=== PATIENT | female | born 1945 | race Caucasian/White ===

== ENCOUNTER 2017-04-25 04:01 | Inpatient (IN) | payer MEDICARE ==
[2017-04-25] MEDS ORDERED: FENTANYL CITRATE INJ/PF 100 MCG/2 ML AMPUL IV ONE (04:26)
[2017-04-25] MEDS ORDERED: ONDANSETRON HCL INJ/PF 4 MG/2 ML SDV IV ONE (04:26)
--- NOTE | 2017-04-25 04:51 | ER Document Report ---
ED GI/ - General TRAVEL OUTSIDE OF THE [place] IN LAST 30 DAYS: No <JIMENA MONZON - Last Filed: 04/25/17 07:17> <RE SOTO - Last Filed: 04/25/17 12:49> - General Chief Complaint: Abdominal Pain Stated Complaint: ABDOMINAL PAIN Time Seen by Provider: 04/25/17 04:16 Notes: Patient is a 71-year-old female that comes emergency department for chief complaint of sharp upper abdominal pain, she states she feels like it shoots into her right back or shoulder occasionally as well. She states pain started suddenly at 1 AM it woke her up. She denies vomiting, she reports intermittent nausea, she denies lower abdominal pain, chest pain, fever or chills. Past medical history of gastric sleeve, hysterectomy, left breast removal secondary to cancer, she is also on Eliquis for atrial fibrillation. (JIMENA MONZON) - Related Data Allergies/Adverse Reactions: acetaminophen [From Percocet] Adverse Reaction (Verified 04/25/17 06:50) hydrocodone [From Tionesta] Adverse Reaction (Verified 04/25/17 06:50) Opioids - Morphine Analogues Adverse Reaction (Verified 04/25/17 06:50) oxycodone [From Percocet] Adverse Reaction (Verified 04/25/17 06:50) Past Medical History - General Information source: Patient, Relative - Social History Smoking Status: Never Smoker Frequency of alcohol use: None Drug Abuse: None Lives with: Family Family History: Reviewed & Not Pertinent - Past Medical History Cardiac Medical History: Reports: Hx Atrial Fibrillation Malignancy Medical History: Reports: Hx Breast Cancer Past Surgical History: Reports: Hx Breast Surgery - Left breast removed, Hx Gastric Bypass Surgery - Gastric sleeve, Hx Hysterectomy <JIMENA MONZON - Last Filed: 04/25/17 07:17> Review of Systems - Review of Systems Constitutional: No symptoms reported EENT: No symptoms reported Cardiovascular: No symptoms reported Respiratory: No symptoms reported Gastrointestinal: See HPI Genitourinary: No symptoms reported Female Genitourinary: No symptoms reported Musculoskeletal: No symptoms reported Skin: No symptoms reported Hematologic/Lymphatic: No symptoms reported Neurological/Psychological: No symptoms reported <JIMENA MONZON - Last Filed: 04/25/17 07:17> Physical Exam - General General appearance: Anxious In distress: Moderate - Patient obviously uncomfortable - HEENT Head: Normocephalic, Atraumatic Eyes: Normal Conjunctiva: Normal Extraocular movements intact: Yes Eyelashes: Normal Pupils: PERRL Nasal: Normal Mouth/Lips: Normal Mucous membranes: Normal Pharynx: Normal Neck: Normal - Respiratory Respiratory status: No respiratory distress. No: Respiratory distress, Labored , Tachypnea Breath sounds: Normal. No: Decreased air movement, Wheezing - Cardiovascular Rhythm: Regular. No: Tachycardia Heart sounds: Normal auscultation, S1 appreciated, S2 appreciated Murmur: No Normal capillary refill: Yes - Abdominal Inspection: Normal Distension: No distension Tenderness: Tender - Very tender across the upper abdomen generally, most tender in the epigastric area, lower abdomen with minimal tenderness, Guarding - Back Back: Normal. No: Tender - Extremities General upper extremity: Normal inspection, Nontender, Normal strength, Normal temperature General lower extremity: Normal inspection, Nontender, Normal strength, Normal temperature. No: Edema - Neurological Neuro grossly intact: Yes Cognition: Normal Orientation: AAOx4 Easley Coma Scale Eye Opening: Spontaneous Jazmin Coma Scale Verbal: Oriented Jazmin Coma Scale Motor: Obeys Commands Easley Coma Scale Total: 15 Speech: Normal Motor strength normal: LUE, RUE, LLE, RLE Sensory: Normal - Skin Skin Temperature: Warm Skin Moisture: Dry Skin Color: Normal <JIMENA MONZON - Last Filed: 04/25/17 07:17> - Vital signs Vitals: Temp Pulse Resp BP Pulse Ox 97.5 F 58 L 20 177/75 H 100 04/25/17 04:08 04/25/17 04:08 04/25/17 04:08 04/25/17 04:08 04/25/17 04:08 Course - Laboratory Result Diagrams: 04/25/17 04:45 04/25/17 04:45 <JIMENA MONZON - Last Filed: 04/25/17 07:17> - Laboratory Result Diagrams: 04/25/17 04:45 04/25/17 04:45 <RE SOTO - Last Filed: 04/25/17 12:49> - Re-evaluation Re-evalutation: Patient is noticeably uncomfortable on initial evaluation, concern for possible perforation due to sudden onset of pain, pain in her upper abdomen generally with some guarding, could be cholecystitis or gallbladder pain although will begin with CAT scan with IV contrast to rule out perforation first and then may be progress to ultrasound if needed. 04/25/17 Patient had some relief of initial pain with the small amount of fentanyl, however now she is vomiting. Will not be able to tolerate oral contrast. Checking troponin and EKG as well. Patient requests Toradol, she has had this in the past, creatinine is normal. Giving small dose. 04/25/17 CT showing nonspecific mesenteric stranding which could be infectious, inflammatory, or cancerous. Patient does have a history of breast cancer, however with her acute pain she will be covered with Zosyn at this time, CT also indicates possible 0.3 cm stone either in the gallbladder or in the ducts, ultrasound will be performed to further evaluate. 04/25/17 07:20 Patient was introduced to Nasrin Soto PA-C at bedside, final workup pending. (JIMENA MONZON) 04/25/17 12:47 MRCP was ordered due to possibility of choledocholithiasis today on CAT scan. MRCP negative for any acute pathology or any findings of abnormality really. Dr. Bonilla, hospitalist agrees to admit at this time for further workup as we have no reason at this time to transfer her with negative workup of the gallbladder, she has been with us in the ER for 9 hours, received a CAT scan, ultrasound and MRI at this time we still do not have a clear answer as to what is going on but patient has required repeat pain medication and nausea medication here. (RE SOTO) - Vital Signs Vital signs: Temp Pulse Resp BP Pulse Ox 97.5 F 58 L 20 177/75 H 100 04/25/17 04:08 04/25/17 04:08 04/25/17 04:08 04/25/17 04:08 04/25/17 04:08 - Laboratory Laboratory results interpreted by me: 04/25/17 04/25/17 04/25/17 04:45 04:45 05:00 RDW 14.1 H Sodium 135.5 L Glucose 124 H Total Protein 6.2 L Ur Leukocyte Esterase LARGE H Discharge <JIMENA MONZON - Last Filed: 04/25/17 07:17> - Discharge Admitting Provider: Lakeishaist - kimmy Unit Admitted: Medical Floor <RE SOTO - Last Filed: 04/25/17 12:49> - Discharge Clinical Impression: Epigastric pain Nausea and vomiting Qualifiers: Vomiting type: unspecified Vomiting Intractability: non-intractable Qualified Code(s): R11.2 - Nausea with vomiting, unspecified Condition: Stable Disposition: ADMITTED INPATIENT
[2017-04-25 05:10] LABS: ABSOLUTE EOSINOPHILS # (AUTO) 0.1 10^3/uL (0.0-0.6); ABSOLUTE MONOCYTES (AUTO) 0.7 10^3/uL (0.1-1.4); ABSOLUTE NEUT (AUTO) 6.5 10^3/uL (1.7-8.2); BASOPHILS % (AUTO) 0.3 % (0-2); EOSINOPHILS % (AUTO) 0.7 % (0-6); LYMPHOCYTES % (AUTO) 29.6 % (13-45); MEAN CORPUSCULAR HEMOGLOBIN 30.3 pg (27.0-33.4); MEAN CORPUSCULAR HGB CONC 34.1 g/dL (32.0-36.0); MEAN CORPUSCULAR VOLUME 89 fl (80-97); MONOCYTES % (AUTO) 6.6 % (3-13); PLATELET COUNT 213 10^3/uL (150-450); RED BLOOD COUNT 4.62 10^6/uL (3.72-5.28); RED CELL DISTRIBUTION WIDTH 14.1 % (11.5-14.0); SEGMENTED NEUTROPHILS % (AUTO) 62.8 % (42-78); TOTAL CELLS COUNTED % (AUTO) 100 %; WHITE BLOOD COUNT 10.3 10^3/uL (4.0-10.5)
[2017-04-25 05:29] LABS: ALANINE AMINOTRANSFERASE 40 U/L (9-52); ALBUMIN 4.1 g/dL (3.5-5.0); ALKALINE PHOSPHATASE 82 U/L (38-126); ANION GAP 14 (5-19); ASPARTATE AMINO TRANSFERASE 24 U/L (14-36); BILIRUBIN,DIRECT 0.1 mg/dL (0.0-0.4); BILIRUBIN,TOTAL 0.5 mg/dL (0.2-1.3); BLOOD UREA NITROGEN 19 mg/dL (7-20); CARBON DIOXIDE 24 mmol/L (22-30); CHLORIDE 98 mmol/L (98-107); GLUCOSE 124 mg/dL (75-110); LIPASE 212.4 U/L (23-300); SODIUM 135.5 mmol/L (137-145); TOTAL PROTEIN 6.2 g/dL (6.3-8.2)
[2017-04-25] MEDS ORDERED: KETOROLAC TROMETHAMINE INJ/PF 30 MG/1 ML SDV IV ONE (05:42)
[2017-04-25] MEDS ORDERED: NORMAL SALINE 1000 ML 1,000 ML IV ONE (05:42)
[2017-04-25 05:46] LABS: APPEARANCE,URINE CLEAR; BILIRUBIN,URINE NEGATIVE (NEGATIVE); COLOR,URINE YELLOW; GLUCOSE, URINE NEGATIVE (NEGATIVE); KETONES,URINE NEGATIVE (NEGATIVE); LEUKOCYTE ESTERASE,URINE LARGE (NEGATIVE); NITRITE,URINE NEGATIVE (NEGATIVE); PROTEIN,URINE NEGATIVE (NEGATIVE); URINE SPECIFIC GRAVITY 1.014; UROBILINOGEN,URINE NEGATIVE mg/dL (<2.0)
--- NOTE | 2017-04-25 06:50 | RADIOLOGY REPORT (SQ) ---
EXAM DESCRIPTION: CT ABD/PELVIS WITH IV ONLY CLINICAL HISTORY: 71 years Female, severe upper abdominal pain COMPARISON: None. TECHNIQUE: 71 mL Isovue-370 contrast. Coronal and sagittal reformat. This exam was performed according to our departmental dose-optimization program, which includes automated exposure control, adjustment of the mA and/or kV according to patient size and/or use of iterative reconstruction technique. Limited: No delay sequence of the renal system due to technical problems with the CT scanner. FINDINGS: Moderate, extensively inflamed mesenteric fat of the right paracentral abdomen. No significant free fluid. 0.3 cm calcification near the gallbladder neck may indicate gallstone or choledocholithiasis. Small hiatal hernia. Atherosclerosis. Gastric suture. Moderate levo convexity. Mammary prostheses. Moderate coronary arterial calcification. Calcified right buttock granuloma. Grade 2 L5 anterolisthesis with chronic bilateral L5 spondylolyses, and moderate-severe bilateral L5 foraminal stenoses. Inferior thorax, liver, pancreas, spleen, adrenals, kidneys, gastrointestinal tract, pelvic organs, lymphatics, vasculature, and musculoskeleton appear otherwise unremarkable. IMPRESSION: 1. Moderately mesenteric fat inflammation of the right paracentral abdomen. Infectious, inflammatory, neoplastic processes are in the differential diagnosis. 2. Possible 0.3 cm cholelithiasis/choledocholithiasis. 3. Grade 2 L5 anterolisthesis with chronic bilateral L5 spondylolyses, and moderate-severe bilateral L5 foraminal stenoses.
[2017-04-25] MEDS ORDERED: PIPERACILLIN/TAZOBACTAM 3.375 GM VIAL IV ONE (06:54)
[2017-04-25] MEDS ORDERED: DIPHENHYDRAMINE HCL 50 MG/ML VIAL IV ONE ×4 (06:59→18:45)
[2017-04-25] MEDS ORDERED: HYDROMORPHONE HCL INJ/PF 2 MG/ML AMPULE IV ONE ×4 (06:59→18:45)
--- NOTE | 2017-04-25 08:16 | RADIOLOGY REPORT (SQ) ---
EXAM DESCRIPTION: U/S ABDOMEN LIMITED W/O DOP COMPLETED DATE/TIME: 04/25/2017 8:04 am REASON FOR STUDY: eval stone location COMPARISON: Abdominal CT scan dated 04/25/2017 TECHNIQUE: Dynamic and static grayscale images acquired of the abdomen and recorded on PACS. Rogerioo kelvin selected color Doppler and spectral images recorded. LIMITATIONS: None. FINDINGS: PANCREAS: No masses. Visualized pancreatic duct normal caliber. LIVER: No masses. Echotexture normal. LIVER VASCULATURE: Normal directional flow of the main portal vein. GALLBLADDER: No stones. Normal wall thickness. No pericholecystic fluid. The suspected gallstone joseph ntified on the CT is not identified on the basis of the ultrasound examination. ULTRASOUND-DETECTED TORRES'S SIGN: Negative. INTRAHEPATIC DUCTS AND COMMON DUCT: CBD and intrahepatic ducts normal caliber. No filling defects. INFERIOR VENA CAVA: Normal flow. AORTA: No aneurysm. RIGHT KIDNEY: Normal size. Normal echogenicity. No solid or suspicious masses. No hydronephrosis. No calcifications. PERITONEAL AND RIGHT PLEURAL SPACE: No ascites or effusions. OTHER: No other significant findings. IMPRESSION: NORMAL RIGHT UPPER QUADRANT ULTRASOUND. The suspected gallstone identified on the CT is not identified on the basis of the ultrasound examination. TECHNICAL DOCUMENTATION: JOB ID: [id number] [employer]- All Rights Reserved Reading location - IP/workstation name: [email or web address]
--- NOTE | 2017-04-25 09:35 | EKG REPORT ---
SEVERITY:- ABNORMAL ECG - SINUS RHYTHM NONSPECIFIC ST-T CHANGES ANTERIOR LEADS. : Confirmed by: Solomon Rodas MD 25-Apr-2017 09:34:44
--- NOTE | 2017-04-25 12:09 | RADIOLOGY REPORT (SQ) ---
EXAM DESCRIPTION: MRI ABDOMEN WITHOUT COMPLETED DATE/TIME: 04/25/2017 11:17 am REASON FOR STUDY: choledocolithiasis? CT measured 0.3cm, RUQ neg COMPARISON: None. TECHNIQUE: Multiplanar multisequence imaging performed without contrast including sagittal, axial an d coronal T2, axial T1, axial gradient fat sat T1, and axial in and out of phase sequences. Addition al MRCP images also acquired. CONTRAST TYPE AND DOSE: Noncontrast study. RENAL FUNCTION: Not applicable. LIMITATIONS: None. FINDINGS: LIVER: Normal size. No masses. No dilated ducts. CBD normal. BILE DUCTS: No ductal dilation. Common bile duct measures 5 mm. No filling defects. SPLEEN: Normal size. No focal lesions. PANCREAS: No masses. No adjacent inflammation or peripancreatic fluid collections. Pancreatic duct no t dilated. GALLBLADDER: No masses. No stones. No gallbladder wall thickening or pericholecystic fluid. ADRENAL GLANDS: No significant masses or asymmetry. RIGHT KIDNEY AND URETER: No masses. No hydronephrosis. LEFT KIDNEY AND URETER: No masses. No hydronephrosis. AORTA AND VESSELS: No aneurysm. No dissection. Renal arteries, SMA, celiac without stenosis. RETROPERITONEUM: No retroperitoneal adenopathy, hemorrhage or masses. BOWEL: No visualized masses. No inflammation. No significant dilatation. ABDOMINAL WALL AND PERITONEUM: No hernias. There is trace free fluid in the right and left upper valeria drant. BONES: No acute or significant findings. OTHER: No other significant finding. IMPRESSION: RELATIVELY UNREMARKABLE MRI OF THE ABDOMEN WITHOUT CONTRAST. TRACE FREE FLUID IN THE UP PER ABDOMEN OF UNCLEAR ETIOLOGY OR SIGNIFICANCE. NO OTHER SIGNIFICANT FINDINGS. TECHNICAL DOCUMENTATION: JOB ID: [id number] [employer]- All Rights Reserved Reading location - IP/workstation name: [email or web address]
[2017-04-25] MEDS ORDERED: NORMAL SALINE 1000 ML 1,000 ML IV PRN (13:01)
[2017-04-25] MEDS ORDERED: ENOXAPARIN SODIUM INJ 40 MG/0.4 ML DISP.SYRIN SUBCUT ONE (14:30)
[2017-04-25] MEDS ORDERED: HYDRALAZINE HCL INJ/PF 20 MG/1 ML SDV IV PRN (14:45)
--- NOTE | 2017-04-25 14:46 | PDOC H&P ---
History of Present Illness Admission Date/PCP: 04/25/17 13:04 PCP: Will need to ask patient. Patient complains of: abdominal pain and nausea * 1 day History of Present Illness: NADER FERRER is a 71 year old female with history of gastric sleeve, breast cancer s/p mastectomy in 2010, HTN who presents to the ED for less than one day of acute abdominal pain. States that she was sleeping and woke up with acute right sided abdominal pain. Associated symptoms included nausea. Denies fevers, chills, CP, SOB, vomiting. States that she had her gastric sleeve one year ago at [facility]. Has had no subsequent issues related to sleeve. Denies history of gallbladder disease. No recent sick contacts. Diet has been relatively unchanged except for increased protein intake with use of high protein drink. Her breast cancer is currently in remission and she has normal follow up mammograms. 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 Past Medical History Cardiac Medical History: Reports: Atrial Fibrillation, Hypertension Endocrine Medical History: Reports: Diabetes Mellitus Type 2 Malignancy Medical History: Reports: Breast Cancer Past Surgical History Past Surgical History: Reports: Gastric Bypass Surgery - Gastric sleeve, Hysterectomy, Mastectomy Social History Information Source: Patient Lives with: Family Smoking Status: Never Smoker Frequency of Alcohol Use: Rare Hx Recreational Drug Use: No Drugs: None Hx Prescription Drug Abuse: No Family History Family History: Reviewed & Not Pertinent Parental Family History Reviewed: No Children Family History Reviewed: NA Sibling(s) Family History Reviewed.: NA Medication/Allergy Allergies/Adverse Reactions: acetaminophen [From Percocet] Adverse Reaction (Verified 04/25/17 06:50) hydrocodone [From [place]] Adverse Reaction (Verified 04/25/17 06:50) Opioids - Morphine Analogues Adverse Reaction (Verified 04/25/17 06:50) oxycodone [From Percocet] Adverse Reaction (Verified 04/25/17 06:50) Physical Exam Vital Signs: Temp Pulse Resp BP Pulse Ox 97.5 F 58 L 20 177/75 H 100 04/25/17 04:08 04/25/17 04:08 04/25/17 04:08 04/25/17 04:08 04/25/17 04:08 General appearance: PRESENT: no acute distress, other - Very pleasant, appears comfortable Head exam: PRESENT: normocephalic Mouth exam: PRESENT: moist Respiratory exam: PRESENT: unlabored. ABSENT: tachypnea, wheezes Cardiovascular exam: PRESENT: RRR, +S1, +S2. ABSENT: tachycardia GI/Abdominal exam: PRESENT: normal bowel sounds, soft, tenderness - RLL tenderness to deep palation Extremities exam: ABSENT: tenderness, +1 edema Neurological exam: PRESENT: alert, awake, CN II-XII grossly intact Psychiatric exam: PRESENT: appropriate affect Results Impressions: Abdomen/Pelvis CT 04/25/17 04:25 IMPRESSION: 1. Moderately mesenteric fat inflammation of the right paracentral abdomen. Infectious, inflammatory, neoplastic processes are in the differential diagnosis. 2. Possible 0.3 cm cholelithiasis/choledocholithiasis. 3. Grade 2 L5 anterolisthesis with chronic bilateral L5 spondylolyses, and moderate-severe bilateral L5 foraminal stenoses. Abdomen Ultrasound 04/25/17 06:54 IMPRESSION: NORMAL RIGHT UPPER QUADRANT ULTRASOUND. The suspected gallstone identified on the CT is not identified on the basis of the ultrasound examination. Abdomen MRI 04/25/17 08:47 IMPRESSION: RELATIVELY UNREMARKABLE MRI OF THE ABDOMEN WITHOUT CONTRAST. TRACE FREE FLUID IN THE UPPER ABDOMEN OF UNCLEAR ETIOLOGY OR SIGNIFICANCE. NO OTHER SIGNIFICANT FINDINGS. Assessment & Plan - Diagnosis (1) Nausea and vomiting Qualifiers: Vomiting type: unspecified Vomiting Intractability: non-intractable Qualified Code(s): R11.2 - Nausea with vomiting, unspecified Is this a current diagnosis for this admission?: Yes Plan: Acute onset of right sided abdominal pain with nausea Work up: - Labs largely unremarkable. WBC, lipase, LFTs all wnl - CT AP showed moderate mesenteric fat inflammation of the right paracentral abdomen. Also notes 0.3 cholelithasis - RUQ - no evidence of gallstone - MRCP without contrast - no clear abnormality with trace free fluid Unclear etiology. this may be a stone that has passed. Would expect to see ductal dilitation if there was previous stone. No evidence of cholecystitis, pancreatitis, or other intra=abdominal pathology. CT did show mesenteric fat inflammation, however unclear significance of this - Will continue supportive care for now with IVF 75cc, clear liquids (ADAT), IV Zofran prn - If abdominal pain persists/worsens, will consult GI for consideration of ERCP - Admit for observation (2) Breast cancer Qualifiers: Breast location: unspecified site of breast Estrogen receptor status: positive Patient sex: female Laterality: unspecified laterality Qualified Code(s): C50.919 - Malignant neoplasm of unspecified site of unspecified female breast; Z17.0 - Estrogen receptor positive status [ER+]; Z17.0 - Estrogen receptor positive status [ER+] Is this a current diagnosis for this admission?: No Plan: Previous history, s/p mastectomy without adjuvant therapy - Has had follow up mammograms and states no evidence of recurrence (3) Gastric bypass status for obesity Is this a current diagnosis for this admission?: No Plan: History of gastric sleeve 1 year ago - No active issues - Followed at [facility] (4) HTN (hypertension) Qualifiers: Hypertension type: essential hypertension Qualified Code(s): I10 - Essential (primary) hypertension Is this a current diagnosis for this admission?: Yes Plan: Blood pressure elevated currently. Likely worsened due to pain - CTM - Continue home Amlodipine, Metoprolol, and Olmesartan - Will add Hydralazine 10mg IV q6 hours PRN 180 - Time Time Spent: 50 to 70 Minutes Anticipated discharge: Home Within: within 24 hours
[2017-04-25] MEDS: APIXABAN 5 MG TABLET PO SCH (22:24)
[2017-04-25] MEDS: ONDANSETRON HCL INJ/PF 4 MG/2 ML SDV IV PRN (22:25)
[2017-04-25] MEDS: 1/2 NORMAL SALINE 1,000 ML IV PRN (23:06)
[2017-04-25] MEDS: AMLODIPINE BESYLATE 5 MG TABLET PO SCH (23:06)
[2017-04-25] MEDS ORDERED: LACTULOSE SYRUP 20 GM/30 ML UDCUP PO ONE (23:49)
[2017-04-26] MEDS: KETOROLAC TROMETHAMINE INJ/PF 30 MG/1 ML SDV IV PRN ×3 (00:12→23:59)
[2017-04-26] MEDS ORDERED: METOPROLOL TARTRATE PF/INJ 5 MG/5 ML SDV IV ONE ×3 (00:50→03:45)
[2017-04-26] MEDS ORDERED: HYDROMORPHONE HCL INJ/PF 2 MG/ML AMPULE SUBCUT ONE (03:45)
[2017-04-26] MEDS ORDERED: DIPHENHYDRAMINE HCL 50 MG/ML VIAL ONE (03:59)
[2017-04-26] MEDS ORDERED: DIPHENHYDRAMINE HCL 50 MG/ML VIAL IV ONE (04:00)
[2017-04-26] MEDS: ONDANSETRON HCL INJ/PF 4 MG/2 ML SDV IV PRN ×3 (04:25→22:15)
[2017-04-26] MEDS ORDERED: DEXTROSE 40% GEL 15 GM TUBE PO PRN ×2 (04:39)
[2017-04-26] MEDS ORDERED: GLUCAGON,HUMAN RECOMB 1 MG INJ SUBCUT PRN (04:39)
[2017-04-26] MEDS ORDERED: DEXTROSE 50%-WATER 25 GM/50 ML DISP.SYRIN IV PRN ×2 (04:39)
[2017-04-26 04:45] LABS: HEMATOCRIT 41.8 % (36.0-47.0); HEMOGLOBIN 13.9 g/dL (12.0-15.5); MEAN CORPUSCULAR HEMOGLOBIN 29.9 pg (27.0-33.4); MEAN CORPUSCULAR HGB CONC 33.3 g/dL (32.0-36.0); MEAN CORPUSCULAR VOLUME 90 fl (80-97); PLATELET COUNT 215 10^3/uL (150-450); RED BLOOD COUNT 4.65 10^6/uL (3.72-5.28); WHITE BLOOD COUNT 11.1 10^3/uL (4.0-10.5)
[2017-04-26 05:25] LABS: ANION GAP 11 (5-19); BLOOD UREA NITROGEN 10 mg/dL (7-20); CALCIUM 9.5 mg/dL (8.4-10.2); CARBON DIOXIDE 25 mmol/L (22-30); CHLORIDE 92 mmol/L (98-107); GLUCOSE 144 mg/dL (75-110); POTASSIUM 3.9 mmol/L (3.6-5.0); SODIUM 127.5 mmol/L (137-145)
[2017-04-26] MEDS: LANSOPRAZOLE 30 MG TAB.RAP.DR PO SCH (05:56)
[2017-04-26] MEDS ORDERED: (PENDING PHARMACY ID) (Olmesartan Medoxomil [Benicar] 40 MG) PO SCH (10:00)
[2017-04-26] MEDS ORDERED: ENOXAPARIN SODIUM INJ 40 MG/0.4 ML DISP.SYRIN SUBCUT SCH (10:00)
[2017-04-26] MEDS ORDERED: HYDROMORPHONE HCL INJ/PF 2 MG/ML AMPULE INJ PRN (10:07)
[2017-04-26] MEDS ORDERED: BISACODYL 10 MG SUPP.RECT PR ONE (11:00)
[2017-04-26] MEDS: HYDROMORPHONE HCL INJ/PF 2 MG/ML AMPULE IV PRN ×3 (11:10→22:10)
[2017-04-26] MEDS: APIXABAN 5 MG TABLET PO SCH ×2 (11:11→17:27)
[2017-04-26] MEDS: POLYETHYLENE GLYCOL 3350 POWDER 17 GM/1 PACKET PO SCH (11:11)
[2017-04-26] MEDS: AMLODIPINE BESYLATE 5 MG TABLET PO SCH ×2 (11:11→22:10)
[2017-04-26] MEDS: LOSARTAN POTASSIUM 50 MG TABLET PO SCH (11:12)
[2017-04-26] MEDS: LETROZOLE 2.5 MG TABLET PO SCH (11:15)
--- NOTE | 2017-04-26 13:58 | PDOC CONSULTATION ---
Consultation Consult Date: 04/26/17 Consult reason:: RLQ pains History of Present Illness Admission Date/PCP: 04/25/17 13:04 Patient complains of: rlq PAINS History of Present Illness: 71 yo female post Lap Band then Sleeve Gastrectomy a year ago, post total hysterectomy woke up with severe RLQ pains radiating to the back at 1 am past 2 days. Pains associated with nausea. Pains are spasmodic. Denies fever,chills, dysuria. Has constipation. Had multiple studies including US GB,CT scan of Abd/pelvis as well as MRI of the abdomen.Only + finding is inflammation of the right mesenteric area on CT Scan but not seen on MRI. MRI showed some fluid in the pelvis. Urine C/S has gm- cocci. Past Medical History Cardiac Medical History: Reports: Atrial Fibrillation, Hypertension Endocrine Medical History: Reports: Diabetes Mellitus Type 2 Malignancy Medical History: Reports: Breast Cancer Past Surgical History Past Surgical History: Reports: Gastric Bypass Surgery - Gastric sleeve, Hysterectomy, Mastectomy Social History Lives with: Family Smoking Status: Never Smoker Frequency of Alcohol Use: None Hx Recreational Drug Use: No Drugs: None Hx Prescription Drug Abuse: No - Advance Directive Resuscitation Status: Full Code Family History Family History: Reviewed & Not Pertinent Parental Family History Reviewed: No Children Family History Reviewed: No Sibling(s) Family History Reviewed.: No Medication/Allergy Home Medications: Amlodipine Besylate [Norvasc 5 mg Tablet] 5 mg PO BID 04/25/17 Apixaban [Eliquis 5 mg Tablet] 5 mg PO BID 04/25/17 Letrozole [Femara 2.5 Mg Tablet] 2.5 mg PO DAILY 04/25/17 Metoprolol Succinate [Toprol XL 100 mg Tablet] 100 mg PO DAILY 04/25/17 Olmesartan Medoxomil [Benicar] 40 mg PO DAILY 04/25/17 Omeprazole 40 mg PO DAILY 04/25/17 Allergies/Adverse Reactions: acetaminophen [From Percocet] Adverse Reaction (Verified 04/25/17 06:50) hydrocodone [From [place]] Adverse Reaction (Verified 04/25/17 06:50) Opioids - Morphine Analogues Adverse Reaction (Verified 04/25/17 06:50) oxycodone [From Percocet] Adverse Reaction (Verified 04/25/17 06:50) Review of Systems Constitutional: PRESENT: as per HPI Eyes: PRESENT: other - no visual/hearing problems Cardiovascular: PRESENT: other - no chest pains/dyspnea Gastrointestinal: PRESENT: abdominal pain, constipation, nausea Genitourinary: PRESENT: other - no dysuria Musculoskeletal: PRESENT: other - no joint pains Integumentary: PRESENT: other - dark discoloration right thigh due to a bump Neurological: PRESENT: other - no seizures Endocrine: PRESENT: other - no polyuria Hematologic/Lymphatic: PRESENT: other - noeasy bruising Physical Exam Vital Signs: Temp Pulse Resp BP Pulse Ox 98.3 F 60 17 149/66 H 98 04/26/17 11:58 04/26/17 11:58 04/26/17 11:58 04/26/17 11:58 04/26/17 11:58 Intake & Output 04/25/17 04/26/17 04/27/17 06:59 06:59 06:59 Intake Total 6 Balance 6 Weight 64.5 kg General appearance: PRESENT: mild distress Head exam: PRESENT: atraumatic, normocephalic Eye exam: PRESENT: conjunctiva pink Mouth exam: PRESENT: moist Neck exam: PRESENT: full ROM Respiratory exam: PRESENT: clear to auscultation manisha Cardiovascular exam: PRESENT: RRR Pulses: PRESENT: normal radial pulses Vascular exam: PRESENT: normal capillary refill GI/Abdominal exam: PRESENT: soft, tenderness - RLQ Rectal exam: PRESENT: deferred Gentrourinary exam: ABSENT: urethral discharge Extremities exam: PRESENT: full ROM Musculoskeletal exam: PRESENT: ambulatory Neurological exam: PRESENT: alert, oriented to person, oriented to place, oriented to time, oriented to situation Psychiatric exam: PRESENT: appropriate affect Results Laboratory Results: 04/26/17 04:26 04/26/17 04:26 04/26/17 04/26/17 04:26 04:26 WBC 11.1 H RBC 4.65 Hgb 13.9 Hct 41.8 MCV 90 MCH 29.9 MCHC 33.3 RDW 14.0 Plt Count 215 Sodium 127.5 L Potassium 3.9 Chloride 92 L Carbon Dioxide 25 Anion Gap 11 BUN 10 Creatinine 0.45 L Est GFR ( Amer) > 60 Est GFR (Non-Af Amer) > 60 Glucose 144 H Calcium 9.5 Impressions: Abdomen/Pelvis CT 04/25/17 04:25 IMPRESSION: 1. Moderately mesenteric fat inflammation of the right paracentral abdomen. Infectious, inflammatory, neoplastic processes are in the differential diagnosis. 2. Possible 0.3 cm cholelithiasis/choledocholithiasis. 3. Grade 2 L5 anterolisthesis with chronic bilateral L5 spondylolyses, and moderate-severe bilateral L5 foraminal stenoses. Abdomen Ultrasound 04/25/17 06:54 IMPRESSION: NORMAL RIGHT UPPER QUADRANT ULTRASOUND. The suspected gallstone identified on the CT is not identified on the basis of the ultrasound examination. Abdomen MRI 04/25/17 08:47 IMPRESSION: RELATIVELY UNREMARKABLE MRI OF THE ABDOMEN WITHOUT CONTRAST. TRACE FREE FLUID IN THE UPPER ABDOMEN OF UNCLEAR ETIOLOGY OR SIGNIFICANCE. NO OTHER SIGNIFICANT FINDINGS. Assessment & Plan - Diagnosis (1) UTI (urinary tract infection) Qualifiers: Urinary tract infection type: site unspecified Is this a current diagnosis for this admission?: Yes - Time Time Spent: 30 to 50 Minutes - Inpatient Certification Medical Necessity: Need for Pain Control - Plan Summary Plan Summary: Had Parenteral meds just prior to evaluation.Will re-evaluate when pain med effect is gone. Only objective + finding is gm+ cocci in urine D/W Hospitalist Dr Bonilla who said will treat UTI. Patient also informed but will re-evaluate after 4-6 hrs from now.
[2017-04-26] MEDS ORDERED: CEFTRIAXONE 1 GM/D5W RTU 1 GM/50 ML RTUPB IV SCH (16:00)
[2017-04-26] MEDS: CEFTRIAXONE SODIUM 1,000 MG in NORMAL SALINE 100 ML IV SCH (17:43)
[2017-04-26] MEDS ORDERED: DIPHENHYDRAMINE HCL 25 MG CAPSULE ONE (18:09)
[2017-04-26] MEDS ORDERED: METOPROLOL TARTRATE PF/INJ 5 MG/5 ML SDV IV PRN (18:28)
--- NOTE | 2017-04-26 18:45 | PDOC PROGRESS REPORT ---
Subjective Progress Note for:: 04/26/17 Subjective:: Had abdominal pain overnight. Received pain medications and lactulose by overnight doctors with only minimal improvement. This AM continues to have abdominal pain, most in Right lower quadrant. Has not had BM in 2-3 days. Continues to dry heave but no vomiting. Denies fevers, chills, CP, SOB. Reason For Visit: INTRACTABLE ABDOMINAL PAIN AND NAUSEA Physical Exam Vital Signs: Temp Pulse Resp BP Pulse Ox 98.9 F 71 17 147/62 H 95 04/26/17 15:59 04/26/17 15:59 04/26/17 15:59 04/26/17 15:59 04/26/17 15:59 Intake & Output 04/25/17 04/26/17 04/27/17 06:59 06:59 06:59 Intake Total 6 Output Total 500 Balance 6 -500 Weight 64.5 kg General appearance: PRESENT: no acute distress, well-developed, well-nourished Head exam: PRESENT: normocephalic Mouth exam: PRESENT: moist Respiratory exam: PRESENT: unlabored. ABSENT: tachypnea, wheezes Cardiovascular exam: PRESENT: +S1, +S2, tachycardia GI/Abdominal exam: PRESENT: normal bowel sounds, soft, tenderness - LLQ. ABSENT : guarding Extremities exam: ABSENT: pedal edema Musculoskeletal exam: PRESENT: full ROM Neurological exam: PRESENT: alert, awake, CN II-XII grossly intact Psychiatric exam: PRESENT: appropriate affect Results Laboratory Results: 04/26/17 04:26 04/26/17 04:26 04/26/17 04/26/17 04:26 04:26 WBC 11.1 H RBC 4.65 Hgb 13.9 Hct 41.8 MCV 90 MCH 29.9 MCHC 33.3 RDW 14.0 Plt Count 215 Sodium 127.5 L Potassium 3.9 Chloride 92 L Carbon Dioxide 25 Anion Gap 11 BUN 10 Creatinine 0.45 L Est GFR ( Amer) > 60 Est GFR (Non-Af Amer) > 60 Glucose 144 H Calcium 9.5 Impressions: Abdomen/Pelvis CT 04/25/17 04:25 IMPRESSION: 1. Moderately mesenteric fat inflammation of the right paracentral abdomen. Infectious, inflammatory, neoplastic processes are in the differential diagnosis. 2. Possible 0.3 cm cholelithiasis/choledocholithiasis. 3. Grade 2 L5 anterolisthesis with chronic bilateral L5 spondylolyses, and moderate-severe bilateral L5 foraminal stenoses. Abdomen Ultrasound 04/25/17 06:54 IMPRESSION: NORMAL RIGHT UPPER QUADRANT ULTRASOUND. The suspected gallstone identified on the CT is not identified on the basis of the ultrasound examination. Abdomen MRI 04/25/17 08:47 IMPRESSION: RELATIVELY UNREMARKABLE MRI OF THE ABDOMEN WITHOUT CONTRAST. TRACE FREE FLUID IN THE UPPER ABDOMEN OF UNCLEAR ETIOLOGY OR SIGNIFICANCE. NO OTHER SIGNIFICANT FINDINGS. Assessment & Plan - Diagnosis (1) Nausea and vomiting Qualifiers: Vomiting type: unspecified Vomiting Intractability: non-intractable Qualified Code(s): R11.2 - Nausea with vomiting, unspecified Is this a current diagnosis for this admission?: Yes Plan: Acute onset of right sided abdominal pain with nausea Work up: - Labs largely unremarkable. WBC, lipase, LFTs all wnl - CT AP showed moderate mesenteric fat inflammation of the right paracentral abdomen. Also notes 0.3 cholelithasis - RUQ - no evidence of gallstone - MRCP without contrast - no clear abnormality with trace free fluid 04/26 update - Seen by general surgery, did not feel there was acute pathology for surgical intervention - UA positive for LE, negative for nitrites, few bacteria - Urine culture: + GNR, will await count and speciation - Will give bowel regimen: emema + Miralax - For (questionable) UTI, started Ceftriaxone 1g 24 hours IV - No role for GI consult at this time (2) Breast cancer Qualifiers: Breast location: unspecified site of breast Estrogen receptor status: positive Patient sex: female Laterality: unspecified laterality Qualified Code(s): C50.919 - Malignant neoplasm of unspecified site of unspecified female breast; Z17.0 - Estrogen receptor positive status [ER+]; Z17.0 - Estrogen receptor positive status [ER+] Is this a current diagnosis for this admission?: No Plan: Previous history, s/p mastectomy, currently on Letrozole - Has had follow up mammograms and states no evidence of recurrence (3) Gastric bypass status for obesity Is this a current diagnosis for this admission?: No Plan: History of gastric sleeve 1 year ago - No active issues - Followed at [facility], 1928–1983 (4) HTN (hypertension) Qualifiers: Hypertension type: essential hypertension Qualified Code(s): I10 - Essential (primary) hypertension Is this a current diagnosis for this admission?: Yes Plan: Blood pressure elevated currently. Likely worsened due to pain - CTM - Continue home Amlodipine, Metoprolol, and Olmesartan - Will add Hydralazine 10mg IV q6 hours PRN 180 - Time Time Spent with patient: 25-34 minutes Anticipated discharge: Home Within: within 24 hours
[2017-04-26] MEDS: DIPHENHYDRAMINE HCL 25 MG CAPSULE PO PRN (22:10)
[2017-04-27] MEDS: DIPHENHYDRAMINE HCL 25 MG CAPSULE PO PRN ×4 (02:10→21:07)
[2017-04-27] MEDS: HYDROMORPHONE HCL INJ/PF 2 MG/ML AMPULE IV PRN ×5 (02:10→21:05)
[2017-04-27] MEDS: 1/2 NORMAL SALINE 1,000 ML IV PRN (02:10)
[2017-04-27 05:05] LABS: ABSOLUTE LYMPHOCYTES (AUTO) 0.9 10^3/uL (0.5-4.7); ABSOLUTE MONOCYTES (AUTO) 0.8 10^3/uL (0.1-1.4); ABSOLUTE NEUT (AUTO) 6.5 10^3/uL (1.7-8.2); BASOPHILS % (AUTO) 0.1 % (0-2); EOSINOPHILS % (AUTO) 0.2 % (0-6); HEMATOCRIT 38.5 % (36.0-47.0); HEMOGLOBIN 13.3 g/dL (12.0-15.5); LYMPHOCYTES % (AUTO) 10.6 % (13-45); MEAN CORPUSCULAR HEMOGLOBIN 30.5 pg (27.0-33.4); MEAN CORPUSCULAR HGB CONC 34.5 g/dL (32.0-36.0); MEAN CORPUSCULAR VOLUME 88 fl (80-97); MONOCYTES % (AUTO) 9.5 % (3-13); PLATELET COUNT 208 10^3/uL (150-450); RED BLOOD COUNT 4.36 10^6/uL (3.72-5.28); RED CELL DISTRIBUTION WIDTH 13.6 % (11.5-14.0); SEGMENTED NEUTROPHILS % (AUTO) 79.6 % (42-78); TOTAL CELLS COUNTED % (AUTO) 100 %; WHITE BLOOD COUNT 8.2 10^3/uL (4.0-10.5)
[2017-04-27 05:29] LABS: ANION GAP 8 (5-19); BLOOD UREA NITROGEN 10 mg/dL (7-20); CALCIUM 8.8 mg/dL (8.4-10.2); CARBON DIOXIDE 26 mmol/L (22-30); CHLORIDE 88 mmol/L (98-107); GLUCOSE 137 mg/dL (75-110); POTASSIUM 3.9 mmol/L (3.6-5.0); SODIUM 121.5 mmol/L (137-145)
[2017-04-27] MEDS: LANSOPRAZOLE 30 MG TAB.RAP.DR PO SCH (05:42)
[2017-04-27] MEDS: LOSARTAN POTASSIUM 50 MG TABLET PO SCH (11:22)
[2017-04-27] MEDS: APIXABAN 5 MG TABLET PO SCH ×2 (11:23→17:33)
[2017-04-27] MEDS: AMLODIPINE BESYLATE 5 MG TABLET PO SCH ×2 (11:23→21:07)
[2017-04-27] MEDS: POLYETHYLENE GLYCOL 3350 POWDER 17 GM/1 PACKET PO SCH (11:23)
[2017-04-27] MEDS: LETROZOLE 2.5 MG TABLET PO SCH (11:23)
[2017-04-27] MEDS ORDERED: NORMAL SALINE 1000 ML 1,000 ML IV PRN (14:44)
[2017-04-27] MEDS ORDERED: MINERAL OIL 30 ML UDCUP PO ONE (17:30)
[2017-04-27] MEDS: DOCUSATE SODIUM 100 MG CAPSULE PO SCH (17:33)
[2017-04-27] MEDS: CEFTRIAXONE SODIUM 1,000 MG in NORMAL SALINE 100 ML IV SCH (18:17)
--- NOTE | 2017-04-27 18:49 | PDOC PROGRESS REPORT ---
Subjective Progress Note for:: 04/27/17 Subjective:: Patient admitted with abdominal pain which is apparently improved today. She has been seen by the surgeon. She had minimal bowel movement overnight. She has had some nausea but no vomiting. Sodium was noted to be low at 121. Reason For Visit: INTRACTABLE ABDOMINAL PAIN AND NAUSEA Physical Exam Vital Signs: Temp Pulse Resp BP Pulse Ox 97.9 F 74 16 116/54 L 95 04/27/17 15:05 04/27/17 15:05 04/27/17 15:05 04/27/17 15:05 04/27/17 15:05 Intake & Output 04/26/17 04/27/17 04/28/17 06:59 06:59 06:59 Intake Total 6 2020 1020 Output Total 700 Balance 6 1321 1020 Weight 64.5 kg 64.4 kg General appearance: PRESENT: no acute distress Head exam: PRESENT: atraumatic Neck exam: ABSENT: carotid bruit, JVD, lymphadenopathy, thyromegaly Respiratory exam: PRESENT: clear to auscultation manisha. ABSENT: rales, rhonchi, wheezes Cardiovascular exam: PRESENT: bradycardia GI/Abdominal exam: PRESENT: normal bowel sounds, soft, tenderness - Lower quadrants Rectal exam: PRESENT: deferred Musculoskeletal exam: PRESENT: ambulatory Neurological exam: PRESENT: alert, awake, oriented to person, oriented to place , oriented to time, oriented to situation, CN II-XII grossly intact. ABSENT: motor sensory deficit Skin exam: PRESENT: other - Status post mastectomy Results Laboratory Results: 04/27/17 03:55 04/27/17 03:55 04/27/17 04/27/17 03:55 03:55 WBC 8.2 RBC 4.36 Hgb 13.3 Hct 38.5 MCV 88 MCH 30.5 MCHC 34.5 RDW 13.6 Plt Count 208 Seg Neutrophils % 79.6 H Lymphocytes % 10.6 L Monocytes % 9.5 Eosinophils % 0.2 Basophils % 0.1 Absolute Neutrophils 6.5 Absolute Lymphocytes 0.9 Absolute Monocytes 0.8 Absolute Eosinophils 0.0 Absolute Basophils 0.0 Sodium 121.5 L Potassium 3.9 Chloride 88 L Carbon Dioxide 26 Anion Gap 8 BUN 10 Creatinine 0.47 L Est GFR ( Amer) > 60 Est GFR (Non-Af Amer) > 60 Glucose 137 H Calcium 8.8 Impressions: Abdomen/Pelvis CT 04/25/17 04:25 IMPRESSION: 1. Moderately mesenteric fat inflammation of the right paracentral abdomen. Infectious, inflammatory, neoplastic processes are in the differential diagnosis. 2. Possible 0.3 cm cholelithiasis/choledocholithiasis. 3. Grade 2 L5 anterolisthesis with chronic bilateral L5 spondylolyses, and moderate-severe bilateral L5 foraminal stenoses. Abdomen Ultrasound 04/25/17 06:54 IMPRESSION: NORMAL RIGHT UPPER QUADRANT ULTRASOUND. The suspected gallstone identified on the CT is not identified on the basis of the ultrasound examination. Abdomen MRI 04/25/17 08:47 IMPRESSION: RELATIVELY UNREMARKABLE MRI OF THE ABDOMEN WITHOUT CONTRAST. TRACE FREE FLUID IN THE UPPER ABDOMEN OF UNCLEAR ETIOLOGY OR SIGNIFICANCE. NO OTHER SIGNIFICANT FINDINGS. Assessment & Plan - Time Time Spent with patient: 15-24 minutes Medications reviewed and adjusted accordingly: Yes - Plan Summary Plan Summary: Nausea and vomiting associated with acute onset of right-sided abdominal pain. Workup so far has been grossly negative. Plan is to continue with gentle laxatives in hopes that that will relieve her abdominal pain. 2. Breast cancer status post mastectomy currently on letrozole 3. Gastric bypass status post history of gastric sleeve 1 year ago. 4. Hypertension we will continue current medications
--- NOTE | 2017-04-27 20:16 | PDOC PROGRESS REPORT ---
Subjective Progress Note for:: 04/27/17 Subjective:: Less pains RLQ Reason For Visit: INTRACTABLE ABDOMINAL PAIN AND NAUSEA Physical Exam Vital Signs: Temp Pulse Resp BP Pulse Ox 97.9 F 74 16 116/54 L 95 04/27/17 15:05 04/27/17 15:05 04/27/17 15:05 04/27/17 15:05 04/27/17 15:05 Intake & Output 04/26/17 04/27/17 04/28/17 06:59 06:59 06:59 Intake Total 6 2020 1020 Output Total 700 Balance 6 1321 1020 Weight 64.5 kg 64.4 kg Exam: line tender at the RLQ but less than yesterday Still constipated Results Laboratory Results: 04/27/17 03:55 04/27/17 03:55 04/27/17 04/27/17 03:55 03:55 WBC 8.2 RBC 4.36 Hgb 13.3 Hct 38.5 MCV 88 MCH 30.5 MCHC 34.5 RDW 13.6 Plt Count 208 Seg Neutrophils % 79.6 H Lymphocytes % 10.6 L Monocytes % 9.5 Eosinophils % 0.2 Basophils % 0.1 Absolute Neutrophils 6.5 Absolute Lymphocytes 0.9 Absolute Monocytes 0.8 Absolute Eosinophils 0.0 Absolute Basophils 0.0 Sodium 121.5 L Potassium 3.9 Chloride 88 L Carbon Dioxide 26 Anion Gap 8 BUN 10 Creatinine 0.47 L Est GFR ( Amer) > 60 Est GFR (Non-Af Amer) > 60 Glucose 137 H Calcium 8.8 Impressions: Abdomen/Pelvis CT 04/25/17 04:25 IMPRESSION: 1. Moderately mesenteric fat inflammation of the right paracentral abdomen. Infectious, inflammatory, neoplastic processes are in the differential diagnosis. 2. Possible 0.3 cm cholelithiasis/choledocholithiasis. 3. Grade 2 L5 anterolisthesis with chronic bilateral L5 spondylolyses, and moderate-severe bilateral L5 foraminal stenoses. Abdomen Ultrasound 04/25/17 06:54 IMPRESSION: NORMAL RIGHT UPPER QUADRANT ULTRASOUND. The suspected gallstone identified on the CT is not identified on the basis of the ultrasound examination. Abdomen MRI 04/25/17 08:47 IMPRESSION: RELATIVELY UNREMARKABLE MRI OF THE ABDOMEN WITHOUT CONTRAST. TRACE FREE FLUID IN THE UPPER ABDOMEN OF UNCLEAR ETIOLOGY OR SIGNIFICANCE. NO OTHER SIGNIFICANT FINDINGS. Assessment & Plan - Diagnosis (1) UTI (urinary tract infection) Qualifiers: Urinary tract infection type: site unspecified Is this a current diagnosis for this admission?: Yes - Time Time Spent with patient: 15-24 minutes - Plan Summary Plan Summary: Try Mineral oil laxative Will eventually need colonoscopy
[2017-04-27] MEDS ORDERED: MINERAL OIL 30 ML UDCUP ONE (21:14)
[2017-04-28 04:38] LABS: ABSOLUTE EOSINOPHILS # (AUTO) 0.1 10^3/uL (0.0-0.6); ABSOLUTE LYMPHOCYTES (AUTO) 1.7 10^3/uL (0.5-4.7); ABSOLUTE MONOCYTES (AUTO) 0.9 10^3/uL (0.1-1.4); ABSOLUTE NEUT (AUTO) 4.7 10^3/uL (1.7-8.2); BASOPHILS % (AUTO) 0.3 % (0-2); EOSINOPHILS % (AUTO) 1.7 % (0-6); HEMATOCRIT 40.9 % (36.0-47.0); HEMOGLOBIN 13.9 g/dL (12.0-15.5); LYMPHOCYTES % (AUTO) 22.5 % (13-45); MEAN CORPUSCULAR HEMOGLOBIN 30.3 pg (27.0-33.4); MEAN CORPUSCULAR VOLUME 89 fl (80-97); MONOCYTES % (AUTO) 11.7 % (3-13); PLATELET COUNT 208 10^3/uL (150-450); RED BLOOD COUNT 4.59 10^6/uL (3.72-5.28); RED CELL DISTRIBUTION WIDTH 13.9 % (11.5-14.0); SEGMENTED NEUTROPHILS % (AUTO) 63.8 % (42-78); TOTAL CELLS COUNTED % (AUTO) 100 %; WHITE BLOOD COUNT 7.4 10^3/uL (4.0-10.5)
[2017-04-28 05:08] LABS: ANION GAP 8 (5-19); BLOOD UREA NITROGEN 9 mg/dL (7-20); CALCIUM 9.2 mg/dL (8.4-10.2); CARBON DIOXIDE 28 mmol/L (22-30); CHLORIDE 93 mmol/L (98-107); GLUCOSE 119 mg/dL (75-110); POTASSIUM 4.4 mmol/L (3.6-5.0)
[2017-04-28] MEDS: LANSOPRAZOLE 30 MG TAB.RAP.DR PO SCH (05:39)
[2017-04-28] MEDS: LOSARTAN POTASSIUM 50 MG TABLET PO SCH (10:40)
[2017-04-28] MEDS: DOCUSATE SODIUM 100 MG CAPSULE PO SCH ×2 (10:40→19:12)
[2017-04-28] MEDS: APIXABAN 5 MG TABLET PO SCH (10:40)
[2017-04-28] MEDS: LETROZOLE 2.5 MG TABLET PO SCH (10:40)
[2017-04-28] MEDS: POLYETHYLENE GLYCOL 3350 POWDER 17 GM/1 PACKET PO SCH (10:40)
[2017-04-28] MEDS: AMLODIPINE BESYLATE 5 MG TABLET PO SCH (10:40)
[2017-04-28] MEDS ORDERED: MAG HYDROX/AL HYDROX/SIMETH SUSP 30 ML UDCUP PO PRN (12:23)
[2017-04-28] MEDS ORDERED: MAGNESIUM CITRATE 296 ML BOTTLE PO ONE (13:00)
--- NOTE | 2017-04-28 13:06 | PDOC PROGRESS REPORT ---
Subjective Progress Note for:: 04/28/17 Subjective:: Patient admitted with abdominal pain which is apparently improved today. She has been seen by the surgeon. She had minimal bowel movement overnight. Patient was anxious to go home and says she was feeling better. I placed down the soft diet and even before she has patient threw up about 250 mL of greenish liquid. She has been made n.p.o. again and I will obtain KUB to further reassess. Reason For Visit: INTRACTABLE ABDOMINAL PAIN AND NAUSEA Physical Exam Vital Signs: Temp Pulse Resp BP Pulse Ox 97.7 F 96 20 139/77 H 96 04/28/17 07:17 04/28/17 07:17 04/28/17 07:17 04/28/17 07:17 04/28/17 07:17 General appearance: PRESENT: no acute distress, well-developed Head exam: PRESENT: atraumatic Eye exam: PRESENT: conjunctiva pink, EOMI, PERRLA. ABSENT: scleral icterus Neck exam: ABSENT: carotid bruit, JVD, lymphadenopathy, thyromegaly Cardiovascular exam: PRESENT: RRR. ABSENT: diastolic murmur, rubs, systolic murmur Pulses: PRESENT: normal dorsalis pedis pul GI/Abdominal exam: PRESENT: tenderness - minimal Rectal exam: PRESENT: deferred Musculoskeletal exam: PRESENT: ambulatory Neurological exam: PRESENT: alert, awake, oriented to person, oriented to place , oriented to time, oriented to situation, CN II-XII grossly intact. ABSENT: motor sensory deficit Results Laboratory Results: Labs- All tests 24 hr 04/28/17 04/28/17 04:14 04:14 WBC 7.4 RBC 4.59 Hgb 13.9 Hct 40.9 MCV 89 MCH 30.3 MCHC 34.0 RDW 13.9 Plt Count 208 Seg Neutrophils % 63.8 Lymphocytes % 22.5 Monocytes % 11.7 Eosinophils % 1.7 Basophils % 0.3 Absolute Neutrophils 4.7 Absolute Lymphocytes 1.7 Absolute Monocytes 0.9 Absolute Eosinophils 0.1 Absolute Basophils 0.0 Sodium 129.0 L Potassium 4.4 Chloride 93 L Carbon Dioxide 28 Anion Gap 8 BUN 9 Creatinine 0.57 Est GFR ( Amer) > 60 Est GFR (Non-Af Amer) > 60 Glucose 119 H Calcium 9.2 Impressions: Abdomen/Pelvis CT 04/25/17 04:25 IMPRESSION: 1. Moderately mesenteric fat inflammation of the right paracentral abdomen. Infectious, inflammatory, neoplastic processes are in the differential diagnosis. 2. Possible 0.3 cm cholelithiasis/choledocholithiasis. 3. Grade 2 L5 anterolisthesis with chronic bilateral L5 spondylolyses, and moderate-severe bilateral L5 foraminal stenoses. Abdomen Ultrasound 04/25/17 06:54 IMPRESSION: NORMAL RIGHT UPPER QUADRANT ULTRASOUND. The suspected gallstone identified on the CT is not identified on the basis of the ultrasound examination. Abdomen MRI 04/25/17 08:47 IMPRESSION: RELATIVELY UNREMARKABLE MRI OF THE ABDOMEN WITHOUT CONTRAST. TRACE FREE FLUID IN THE UPPER ABDOMEN OF UNCLEAR ETIOLOGY OR SIGNIFICANCE. NO OTHER SIGNIFICANT FINDINGS. Assessment & Plan - Time Time Spent with patient: 15-24 minutes Medications reviewed and adjusted accordingly: Yes Anticipated discharge: Home - Inpatient Certification Medical Necessity: Need For IV Fluids, Risk of Complication if Not Cared For in Hospital - Plan Summary Plan Summary: Nausea and vomiting associated with acute onset of right-sided abdominal pain. Workup remains negative. Patient was feeling better but then threw up again and so KUB will be obtained for further evaluation. 2. Breast cancer status post mastectomy currently on letrozole 3. Gastric bypass status post history of gastric sleeve 1 year ago. 4. Hypertension we will continue current medications 5. Hyponatremia-sodium level was 121 yesterday but he has come up to 129 again today which appears to be somewhat around her baseline. Her IV fluid was changed from hypotonic fluid to isotonic normal saline. Will continue with this and recheck sodium values in a.m.
--- NOTE | 2017-04-28 15:16 | RADIOLOGY REPORT (SQ) ---
EXAM DESCRIPTION: KUB/ABDOMEN (SINGLE VIEW) COMPLETED DATE/TIME: 04/28/2017 3:00 pm REASON FOR STUDY: Abdominal Pain, nausea A04.8 OTHER SPECIFIED BACTERIAL INTESTINAL INFECTIONS A08. 39 OTHER VIRAL ENTERITIS COMPARISON: None. NUMBER OF VIEWS: One view. TECHNIQUE: Supine radiographic image of the abdomen acquired. LIMITATIONS: None. FINDINGS: BOWEL GAS PATTERN: Diffuse small bowel dilation. CALCIFICATIONS: No suspicious calcifications. SOFT TISSUES: No gross mass or suggestion of organomegaly. HARDWARE: None in the abdomen. BONES: No acute fracture. No worrisome bone lesions. OTHER: No other significant finding. IMPRESSION: DIFFUSE SMALL BOWEL DILATION, CONCERNING FOR SMALL BOWEL OBSTRUCTION. TECHNICAL DOCUMENTATION: JOB ID: [id number] [employer]- All Rights Reserved Reading location - IP/workstation name: [email or web address]
[2017-04-28] MEDS ORDERED: PHARMACY COMMUNICATION ORDER MC NR (15:45)
[2017-04-28] MEDS ORDERED: MAG HYDROX/AL HYDROX/SIMETH SUSP 30 ML UDCUP NG PRN (16:10)
[2017-04-28] MEDS: CEFTRIAXONE SODIUM 1,000 MG in NORMAL SALINE 100 ML IV SCH (19:08)
[2017-04-28] MEDS: DIPHENHYDRAMINE HCL 25 MG/10 ML UDC NG PRN ×2 (19:09→23:02)
[2017-04-28] MEDS: HYDROMORPHONE HCL INJ/PF 2 MG/ML AMPULE IV PRN ×2 (19:09→23:02)
[2017-04-28] MEDS: APIXABAN 5 MG TABLET NG SCH (19:09)
--- NOTE | 2017-04-28 19:40 | RADIOLOGY REPORT (SQ) ---
EXAM DESCRIPTION: KUB/ABDOMEN (SINGLE VIEW) COMPLETED DATE/TIME: 04/28/2017 7:21 pm REASON FOR STUDY: Check Placement of NG Tube COMPARISON: Earlier the same day NUMBER OF VIEWS: One view. TECHNIQUE: Supine radiographic image of the abdomen acquired. LIMITATIONS: None. FINDINGS: Nasogastric tube in the stomach. Dilated loops small bowel not significantly changed. IMPRESSION: NG tube in the stomach. Reading location - IP/workstation name: [email or web address]
[2017-04-28] MEDS ORDERED: AMLODIPINE BESYLATE 5 MG TABLET NG SCH (22:00)
--- NOTE | 2017-04-28 22:09 | PDOC PROGRESS REPORT ---
Subjective Progress Note for:: 04/28/17 Subjective:: Less pains at the RLQ Reason For Visit: INTRACTABLE ABDOMINAL PAIN AND NAUSEA Physical Exam Vital Signs: Temp Pulse Resp BP Pulse Ox 98.2 F 112 H 16 94/67 L 95 04/28/17 15:54 04/28/17 15:54 04/28/17 15:54 04/28/17 15:54 04/28/17 15:54 Intake & Output 04/27/17 04/28/17 04/29/17 06:59 06:59 06:59 Intake Total 900 Balance 900 Exam: abd distended. Mild tenderness RLQ Results Impressions: Abdomen/Pelvis CT 04/25/17 04:25 IMPRESSION: 1. Moderately mesenteric fat inflammation of the right paracentral abdomen. Infectious, inflammatory, neoplastic processes are in the differential diagnosis. 2. Possible 0.3 cm cholelithiasis/choledocholithiasis. 3. Grade 2 L5 anterolisthesis with chronic bilateral L5 spondylolyses, and moderate-severe bilateral L5 foraminal stenoses. Abdomen Ultrasound 04/25/17 06:54 IMPRESSION: NORMAL RIGHT UPPER QUADRANT ULTRASOUND. The suspected gallstone identified on the CT is not identified on the basis of the ultrasound examination. Abdomen MRI 04/25/17 08:47 IMPRESSION: RELATIVELY UNREMARKABLE MRI OF THE ABDOMEN WITHOUT CONTRAST. TRACE FREE FLUID IN THE UPPER ABDOMEN OF UNCLEAR ETIOLOGY OR SIGNIFICANCE. NO OTHER SIGNIFICANT FINDINGS. KUB X-Ray 04/28/17 15:46 IMPRESSION: NG tube in the stomach. Assessment & Plan - Diagnosis (1) UTI (urinary tract infection) Qualifiers: Urinary tract infection type: site unspecified Is this a current diagnosis for this admission?: Yes - Time Time Spent with patient: 15-24 minutes - Plan Summary Plan Summary: KUB showed dilated small bowel possible SBO NGT in place.Will likely need colonoscopy to help us with finding etiology of pains
[2017-04-28] MEDS: METOPROLOL TARTRATE 25 MG TABLET NG SCH (23:02)
[2017-04-29] MEDS: LANSOPRAZOLE 30 MG TAB.RAP.DR NG SCH (06:26)
[2017-04-29 07:51] LABS: ABSOLUTE EOSINOPHILS # (AUTO) 0.1 10^3/uL (0.0-0.6); ABSOLUTE LYMPHOCYTES (AUTO) 1.3 10^3/uL (0.5-4.7); ABSOLUTE MONOCYTES (AUTO) 0.7 10^3/uL (0.1-1.4); ABSOLUTE NEUT (AUTO) 2.8 10^3/uL (1.7-8.2); BASOPHILS % (AUTO) 0.8 % (0-2); EOSINOPHILS % (AUTO) 2.1 % (0-6); HEMATOCRIT 38.5 % (36.0-47.0); MEAN CORPUSCULAR HEMOGLOBIN 30.2 pg (27.0-33.4); MEAN CORPUSCULAR HGB CONC 33.8 g/dL (32.0-36.0); MEAN CORPUSCULAR VOLUME 90 fl (80-97); MONOCYTES % (AUTO) 14.5 % (3-13); PLATELET COUNT 228 10^3/uL (150-450); SEGMENTED NEUTROPHILS % (AUTO) 56.6 % (42-78); TOTAL CELLS COUNTED % (AUTO) 100 %
[2017-04-29 08:04] LABS: ANION GAP 5 (5-19); BLOOD UREA NITROGEN 10 mg/dL (7-20); CALCIUM 8.5 mg/dL (8.4-10.2); CARBON DIOXIDE 27 mmol/L (22-30); CHLORIDE 104 mmol/L (98-107); GLUCOSE 111 mg/dL (75-110); POTASSIUM 4.1 mmol/L (3.6-5.0); SODIUM 136.2 mmol/L (137-145)
[2017-04-29] MEDS: DOCUSATE SODIUM 100 MG CAPSULE PO SCH ×2 (09:40→17:25)
[2017-04-29] MEDS: METOPROLOL TARTRATE 25 MG TABLET NG SCH ×2 (09:48→20:56)
[2017-04-29] MEDS: APIXABAN 5 MG TABLET NG SCH ×2 (09:48→17:22)
[2017-04-29] MEDS ORDERED: LOSARTAN POTASSIUM 50 MG TABLET NG SCH (10:00)
[2017-04-29] MEDS ORDERED: LETROZOLE 2.5 MG TABLET NG SCH (10:00)
[2017-04-29] MEDS ORDERED: POLYETHYLENE GLYCOL 3350 POWDER 17 GM/1 PACKET NG SCH (11:00)
--- NOTE | 2017-04-29 14:31 | RADIOLOGY REPORT (SQ) ---
EXAM DESCRIPTION: KUB/ABDOMEN (SINGLE VIEW) COMPLETED DATE/TIME: 04/29/2017 2:00 pm REASON FOR STUDY: follow up KUB A04.8 OTHER SPECIFIED BACTERIAL INTESTINAL INFECTIONS A08.39 OTHER VIRAL ENTERITIS COMPARISON: 04/28/2017. NUMBER OF VIEWS: One view. TECHNIQUE: Supine radiographic image of the abdomen acquired. LIMITATIONS: None. FINDINGS: BOWEL GAS PATTERN: Small bowel dilation unchanged. CALCIFICATIONS: No suspicious calcifications. SOFT TISSUES: No gross mass or suggestion of organomegaly. HARDWARE: Nasogastric tube with the tip in the stomach. BONES: No acute fracture. No worrisome bone lesions. OTHER: No other significant finding. IMPRESSION: NO CHANGE IN APPEARANCE OF THE ABDOMEN. CONTINUED SMALL BOWEL DILATION. TECHNICAL DOCUMENTATION: JOB ID: [id number] [employer]- All Rights Reserved Reading location - IP/workstation name: [email or web address]
--- NOTE | 2017-04-29 17:13 | PDOC PROGRESS REPORT ---
Subjective Progress Note for:: 04/29/17 Reason For Visit: INTRACTABLE ABDOMINAL PAIN AND NAUSEA Patient had a big bowel movement, feels better; minimal drainage from NG tube after 350 drained overnight Physical Exam Vital Signs: Temp Pulse Resp BP Pulse Ox 98.2 F 73 18 127/63 H 99 04/29/17 16:23 04/29/17 16:23 04/29/17 16:23 04/29/17 16:23 04/29/17 16:23 Intake & Output 04/28/17 04/29/17 04/30/17 06:59 06:59 06:59 Intake Total 1775 Output Total 300 Balance 1475 Weight 68.6 kg General appearance: PRESENT: no acute distress GI/Abdominal exam: PRESENT: other - The abdomen is not distended; no peritoneal signs no rigidity. Results Laboratory Results: 04/29/17 07:29 04/29/17 07:29 04/29/17 04/29/17 04/29/17 07:29 07:29 07:29 WBC 5.0 RBC 4.30 Hgb 13.0 Hct 38.5 MCV 90 MCH 30.2 MCHC 33.8 RDW 14.0 Plt Count 228 Seg Neutrophils % 56.6 Lymphocytes % 26.0 Monocytes % 14.5 H Eosinophils % 2.1 Basophils % 0.8 Absolute Neutrophils 2.8 Absolute Lymphocytes 1.3 Absolute Monocytes 0.7 Absolute Eosinophils 0.1 Absolute Basophils 0.0 Sodium 136.2 L Potassium 4.1 Chloride 104 Carbon Dioxide 27 Anion Gap 5 BUN 10 Creatinine 0.58 Est GFR ( Amer) > 60 Est GFR (Non-Af Amer) > 60 Glucose 111 H Lactic Acid 0.7 Calcium 8.5 Magnesium 1.6 Lipase 35.0 Impressions: Abdomen/Pelvis CT 04/25/17 04:25 IMPRESSION: 1. Moderately mesenteric fat inflammation of the right paracentral abdomen. Infectious, inflammatory, neoplastic processes are in the differential diagnosis. 2. Possible 0.3 cm cholelithiasis/choledocholithiasis. 3. Grade 2 L5 anterolisthesis with chronic bilateral L5 spondylolyses, and moderate-severe bilateral L5 foraminal stenoses. Abdomen Ultrasound 04/25/17 06:54 IMPRESSION: NORMAL RIGHT UPPER QUADRANT ULTRASOUND. The suspected gallstone identified on the CT is not identified on the basis of the ultrasound examination. Abdomen MRI 04/25/17 08:47 IMPRESSION: RELATIVELY UNREMARKABLE MRI OF THE ABDOMEN WITHOUT CONTRAST. TRACE FREE FLUID IN THE UPPER ABDOMEN OF UNCLEAR ETIOLOGY OR SIGNIFICANCE. NO OTHER SIGNIFICANT FINDINGS. KUB X-Ray 04/29/17 00:00 IMPRESSION: NO CHANGE IN APPEARANCE OF THE ABDOMEN. CONTINUED SMALL BOWEL DILATION. Assessment & Plan - Diagnosis (1) Nausea and vomiting Qualifiers: Vomiting type: unspecified Vomiting Intractability: non-intractable Qualified Code(s): R11.2 - Nausea with vomiting, unspecified Is this a current diagnosis for this admission?: Yes Plan: Impression: No physical exam or radiographic evidence of acute intra-abdominal pathology despite extensive evaluation Plan: 1. Clamp NG tube; if tolerated, anticipate discontinuation tomorrow 2. No indication for further surgical intervention at this time
[2017-04-29] MEDS: CEFTRIAXONE SODIUM 1,000 MG in NORMAL SALINE 100 ML IV SCH (17:23)
[2017-04-29] MEDS: BENZOCAINE/MENTHOL SORE THROAT LOZENGE BUCCAL PRN ×2 (17:24→19:12)
--- NOTE | 2017-04-29 19:20 | PDOC PROGRESS REPORT ---
Subjective Progress Note for:: 04/29/17 Subjective:: Patient admitted with abdominal pain which is apparently improved today. She has been seen by the surgeon. She had minimal bowel movement overnight. She had little output from NGT and apparently had a large BM. This likely has relieved SBO. Will obtain repeat KUB today Reason For Visit: INTRACTABLE ABDOMINAL PAIN AND NAUSEA Physical Exam Vital Signs: Temp Pulse Resp BP Pulse Ox 98.2 F 73 18 127/63 H 99 04/29/17 16:23 04/29/17 16:23 04/29/17 16:23 04/29/17 16:23 04/29/17 16:23 Intake & Output 04/28/17 04/29/17 04/30/17 06:59 06:59 06:59 Intake Total 1775 900 Output Total 300 100 Balance 1475 800 Weight 68.6 kg General appearance: PRESENT: no acute distress, other - NGT in place Head exam: PRESENT: atraumatic Mouth exam: PRESENT: dry mucosa Respiratory exam: PRESENT: clear to auscultation manisha. ABSENT: rales, rhonchi, wheezes Cardiovascular exam: PRESENT: RRR. ABSENT: diastolic murmur, rubs, systolic murmur GI/Abdominal exam: PRESENT: hyperactive bowel sounds, tenderness Rectal exam: PRESENT: deferred Neurological exam: PRESENT: alert, awake, oriented to person, oriented to place , oriented to time, oriented to situation, CN II-XII grossly intact. ABSENT: motor sensory deficit Results Laboratory Results: 04/29/17 07:29 04/29/17 07:29 04/29/17 04/29/17 04/29/17 07:29 07:29 07:29 WBC 5.0 RBC 4.30 Hgb 13.0 Hct 38.5 MCV 90 MCH 30.2 MCHC 33.8 RDW 14.0 Plt Count 228 Seg Neutrophils % 56.6 Lymphocytes % 26.0 Monocytes % 14.5 H Eosinophils % 2.1 Basophils % 0.8 Absolute Neutrophils 2.8 Absolute Lymphocytes 1.3 Absolute Monocytes 0.7 Absolute Eosinophils 0.1 Absolute Basophils 0.0 Sodium 136.2 L Potassium 4.1 Chloride 104 Carbon Dioxide 27 Anion Gap 5 BUN 10 Creatinine 0.58 Est GFR ( Amer) > 60 Est GFR (Non-Af Amer) > 60 Glucose 111 H Lactic Acid 0.7 Calcium 8.5 Magnesium 1.6 Lipase 35.0 Impressions: Abdomen/Pelvis CT 04/25/17 04:25 IMPRESSION: 1. Moderately mesenteric fat inflammation of the right paracentral abdomen. Infectious, inflammatory, neoplastic processes are in the differential diagnosis. 2. Possible 0.3 cm cholelithiasis/choledocholithiasis. 3. Grade 2 L5 anterolisthesis with chronic bilateral L5 spondylolyses, and moderate-severe bilateral L5 foraminal stenoses. Abdomen Ultrasound 04/25/17 06:54 IMPRESSION: NORMAL RIGHT UPPER QUADRANT ULTRASOUND. The suspected gallstone identified on the CT is not identified on the basis of the ultrasound examination. Abdomen MRI 04/25/17 08:47 IMPRESSION: RELATIVELY UNREMARKABLE MRI OF THE ABDOMEN WITHOUT CONTRAST. TRACE FREE FLUID IN THE UPPER ABDOMEN OF UNCLEAR ETIOLOGY OR SIGNIFICANCE. NO OTHER SIGNIFICANT FINDINGS. KUB X-Ray 04/29/17 00:00 IMPRESSION: NO CHANGE IN APPEARANCE OF THE ABDOMEN. CONTINUED SMALL BOWEL DILATION. Assessment & Plan - Time Time Spent with patient: 15-24 minutes Anticipated discharge: Home Within: within 48 hours - Plan Summary Plan Summary: 1.SBO- Appears to have relieved with BM. Can likely clamp NGT 2. Breast cancer status post mastectomy currently on letrozole 3. Gastric bypass status post history of gastric sleeve 1 year ago. 4. Hypertension we will continue current medications 5. Hyponatremia-sodium level has recovered
[2017-04-30] MEDS: BENZOCAINE/MENTHOL SORE THROAT LOZENGE BUCCAL PRN (04:00)
[2017-04-30] MEDS: LANSOPRAZOLE 30 MG TAB.RAP.DR NG SCH (05:43)
[2017-04-30 08:50] VITALS: BP 145/71
--- NOTE | 2017-06-13 22:05 | DISCHARGE SUMMARY E ---
Discharge Summary NAME: NADER FERRER : 1945 AGE: 71Y ADMITTED: 04/25/2017 DISCHARGED: 04/30/2017 FINAL DIAGNOSES: 1. Post mastectomy, left side for breast cancer on letrozole. 2. Atrial fibrillation on Eliquis. 3. 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 4. Hypertension. 5. Hyponatremia. 6. Arthritis of the lumbosacral spines. 7. Small bowel obstruction due to constipation. HOSPITAL COURSE: This is a 71-year-old female who complained of severe right-sided abdominal pains at 1 a.m. on 04/25/17. The patient then went to the ED where she was then admitted after a CT scan of the abdomen showed mesenteric fat, inflammation along the right paracentral abdomen with a differential of infectious versus neoplastic process. She was then admitted and an ultrasound of the gallbladder was negative for gallstones, since there is a question of gallstones on a CT scan. She also had an MRI of the abdomen which was negative other than trace fluid in the upper abdomen with questionable significance. I saw her in consultation on 04/26/17 and noted to have evidence of urinary tract infection. She had tenderness in the right lower quadrant on deep palpation. A KUB was done on 04/28/17 which showed dilated loops of small bowel. She was given a dose of mineral oil on 04/27/17. She continued to have the NG tube. On 04/30/17, had a large bowel movement with complete resolution of all her symptoms with a tenderness in the right lower quadrant has resolved. NG tube was removed and started on clear liquids and advanced to soft diet, which she tolerated. She was then discharged improved on 04/30/17 with the above final diagnoses. DISCHARGE INSTRUCTIONS: The patient will need an outpatient colonoscopy. Follow up also with her bariatric surgeon at [facility]. She will resume all her medications. DICTATING PHYSICIAN: ZARINA ADAMS M.D. [id number] PHY#: [id number] ID: [id number] JOB#: [id number] ACCT: [id number] cc:Yaniv POMPA PA >
== END 2017-04-30 09:33 | disposition home or self-care (01) | DRG 389 ==
LOC: ER 04:01 → EH 13:04 → INTOOBSV 13:04 → 5 21:04 → OBSVTOIN 04-28 10:12
PROVIDERS: ADMIT Student in an Organized Health Care Education/Training Program; ATTEND Student in an Organized Health Care Education/Training Program
PROC: 0D9670Z Drainage of Stomach with Drainage Device, Via Natural or Artificial Opening (ICD-10-PCS; principal; 2017-04-28)
DX: K56.699 Other intestinal obstruction unspecified as to partial versus complete obstruction (principal); N39.0 Urinary tract infection, site not specified; E87.1 Hypo-osmolality and hyponatremia; I48.91 Unspecified atrial fibrillation; E11.9 Type 2 diabetes mellitus without complications; M46.97 Unspecified inflammatory spondylopathy, lumbosacral region; I10 Essential (primary) hypertension; K59.09 Other constipation; Z90.710 Acquired absence of both cervix and uterus; Z90.12 Acquired absence of left breast and nipple; Z85.3 Personal history of malignant neoplasm of breast; Z98.84 Bariatric surgery status; Z88.5 Allergy status to narcotic agent; Z88.8 Allergy status to other drugs, medicaments and biological substances; Z88.6 Allergy status to analgesic agent; Z79.02 Long term (current) use of antithrombotics/antiplatelets; Z79.899 Other long term (current) drug therapy
CPT/HCPCS: 36415; 74018; 74177; 74181; 76705; 80048; 80053; 81001; 83605; 83690; 83735; 84484; 85025; 85027; 87086; 87088; 87186; 93005; 93010; 96365; 96375; 96376; 99285; G0378; J0696; J1170; J1200; J1650; J1885; J2405; J2543; J3010; J3490; J7030